=== PATIENT | female | born 1960 ===

== ENCOUNTER 2021-05-21 08:00 | Inpatient (IN) | payer OTHER ==
[~2021-05-21] VITALS: Ht 162.6 cm; Wt 86.2 kg
[2021-05-21] MEDS ORDERED: HUMALOG100 UNIT/2 (12:20)
[2021-05-21] MEDS ORDERED: LANTUS SOL100 UNIT/1 SQ (12:20)
[2021-05-21] MEDS ORDERED: CRESTOR10 MG PO (12:21)
[2021-05-21] MEDS ORDERED: CARDICEN (12:21)
[2021-05-21] MEDS ORDERED: VASOTEC20 MG PO (12:21)
[2021-05-21] MEDS ORDERED: TRICOR48 MG (12:22)
[2021-05-21] MEDS ORDERED: PLAVIX75 MG PO (12:22)
[2021-05-21] MEDS ORDERED: VITAMIN C100 MG (12:23)
[2021-05-21] MEDS ORDERED: VITAMIN D-40010 MCG (12:23)
[2021-05-21] MEDS ORDERED: FOLIC ACID PO (12:24)
[2021-05-26] MEDS ORDERED: DILTIAZEM HCL60 MG (08:08)
[2021-05-26] MEDS ORDERED: FENOFIBRATE145 MG (08:09)
[2021-05-26] MEDS ORDERED: FOLIC ACID0.8 M1 (08:09)
[2021-05-26] MEDS ORDERED: OFLOXACIN5 ML (08:09)
[2021-05-28] MEDS ORDERED: INTEGRA PLUS C1 EACH PO (06:43)
[2021-05-28] MEDS ORDERED: OXYC1TAB9 PO (06:43)
[2021-05-28] MEDS ORDERED: ELIQUIS2.5 MG PO (06:43)
[2021-05-28] MEDS ORDERED: BACTRIM DS TAB1 EACH PO (06:43)
== END 2021-05-28 18:55 | DRG 470 ==
LOC: SURG 05-26 06:15 → O/R 05-26 06:15 → SURH 05-26 07:00 → SURG 05-26 11:36
PROVIDERS: ADMIT Orthopaedic Surgery Sports Medicine; ATTEND Orthopaedic Surgery Sports Medicine
PROC: 3E0F7SF Introduction of Other Gas into Respiratory Tract, Via Natural or Artificial Opening (ICD-10-PCS; 2021-05-26)
PROC: 0SRC0J9 Replacement of Right Knee Joint with Synthetic Substitute, Cemented, Open Approach (ICD-10-PCS; principal; 2021-05-26 07:00)
DX: M17.11 Unilateral primary osteoarthritis, right knee (principal); Z20.822 Contact with and (suspected) exposure to COVID-19; I10 Essential (primary) hypertension; E11.9 Type 2 diabetes mellitus without complications; Z79.4 Long term (current) use of insulin